=== PATIENT | male | born 1995 | race Two or more races ===

== ENCOUNTER 2024-07-10 02:01 | Emergency (ER) | payer MEDICAID, SELFPAY ==
[2024-07-10 02:02] VITALS: BMI 26.6
[2024-07-10 02:07] VITALS: BP 148/94; PULSE 91; RESP 18; TEMP 36.8; O2SAT 98
--- NOTE | 2024-07-10 02:23 | EKG_ITS ---
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
--- NOTE | 2024-07-10 02:46 | EDNOTE_ITS ---
ED Chest Pain RME/HPI General Chief Complaint: General Adult/Misc Complain Stated Complaint: CHEST AREA PAIN, PALPITATIONS,LIGHTHEADED Time Seen by Provider: 07/10/24 02:37 Arrival date/time: 07/10/24 02:01 28M with no known PMH presents to ED with sharp chest pain, heart palps, and some dizziness today w/o known trigger. Patient denies history of anxiety/panic attacks (though several visits here with that diagnosis), as well as drug/alcohol use (all tox screens have been neg here). Patient denies cough and URI symptoms. Patient does not want to try a Benzo. Patient states his symptoms are mostly gone except for the dizziness. Limitations: no limitations Related Data Previous Rx's ?Medication ?Instructions ?Recorded acetaminophen 500 mg capsule 1,000 mg (2 x 500 mg) PO QID PRN 05/25/21 fever or pain #30 caps azithromycin 250 mg tablet See Rx Instructions PO .COM PLEX #6 05/25/21 tabs acetaminophen 500 mg tablet 1,000 mg (2 x 500 mg) PO Q ID PRN 04/02/22 (Tylenol Extra Strength) fever or pain #30 tabs potassium, sodium phosphates 280 1 packet PO QID #4 ea 04/02/22 mg-160 mg-250 mg oral powder packet ibuprofen 800 mg tablet 800 mg PO TID PRN pain #30 t abs 08/14/23 tamsulosin 0.4 mg capsule (Flomax) 0.4 mg PO QDAY #10 caps 08/14/23 Allergies Allergy/AdvReac Type Severity Reaction Status Date / Time No Known Allergies Allergy Verified 07/10/24 02:04 Review of Systems Review of Systems Systems Reviewed: All systems reviewed, normal except as documented Constitutional Constitutional: Reports system reviewed and no additional complaints, except as documented, Denies fever(s) and Denies headache(s) ENT Ears, Nose, Mouth, and Throat: Reports as per HPI, Denies disequilibrium, Denies headache(s) and Reports vertigo Cardiovascular Cardiovascular: Reports system reviewed and no additional complaints, except as documented, Reports as per HPI, Reports chest pain, Denies dyspnea and Reports palpitations Respiratory Respiratory: Reports system reviewed and no additional complaints, except as documented, Denies cough and Denies dyspnea Gastrointestinal Gastrointestinal: Reports system reviewed and no additional complaints, except as documented, Denies abdominal pain, Denies nausea and Denies vomiting Neurologic Neurologic: Reports system reviewed and no additional complaints, except as documented, Denies confusion, Denies disequilibrium, Denies headache(s) and Reports vertigo Psychiatric Psychiatric: Denies confusion Endocrine Endocrine: Reports palpitations Past Medical History Past Medical History CARDIAC: Positive Hypertension; Negative Cardiac Disorders, Angina or Congestive Heart Failure RESPIRATORY: Negative Chronic Obstructive Pulmonary Disease (COPD) or Asthma GENITOURINARY: Negative Renal Disease ENDOCRINE: Negative Diabetes Mellitus Type 1 or Diabetes Mellitus Type 2 HEMATOLOGIC: Negative Sickle Cell Disease PSYCHO/SOCIAL: Positive Anxiety OTHER HISTORY: Positive Chicken Pox Family History FAMILY HISTORY: Negative Family Neurologic Problems, Family Psychiatric Problems, Family Respiratory Disorders, Family Cardiac Disorders, Family Gastrointestinal Problems, Family Cancer, Family Surgery or Family Anesthesia Reaction Social History SMOKING STATUS: Never smoker SECOND HAND EXPOSURE: No SUBSTANCE USE: does not use ED Exam General Limitations: Present no limitations General appearance: Present alert and in no apparent distress Head Head exam: Present atraumatic Eye Eye exam: Present normal appearance, PERRL and EOMI ENT ENT exam: Present normal exam, normal oropharynx and mucous membranes moist Neck Neck exam: Present normal inspection, full ROM and trachea midline Chest Chest inspection: Present normal inspection and symmetric chest wall rise Respiratory Respiratory exam: Present normal lung sounds bilaterally Cardiovascular Cardiovascular exam: Present regular rate, normal rhythm and normal heart sounds Abdominal Exam Abdominal exam: Present soft and normal bowel sounds Extremities Exam Extremities exam: Present normal inspection and full ROM Back Exam Back exam: Present normal inspection and full ROM Neurological Exam Neurological exam: Present alert, oriented X3 and CN II-XII intact Psychiatric Psychiatric exam: Present normal affect and normal mood Skin Skin exam: Present warm, dry, intact and normal color Course Quality Measures none Orders Category Date Time Status EKG (ED ONLY) *Do not use* NOW Care 07/10/24 02:23 Completed EKG (ED Only) Stat Exams 07/10/24 02:23 Draft CBC Stat Lab 07/10/24 03:06 Completed CMP [Comprehensive Metabolic Panel] Stat Lab 07/10/24 03:06 Completed D-Dimer Stat Lab 07/10/24 03:06 Completed Magnesium Stat Lab 07/10/24 03:06 Completed Phosphorous Stat Lab 07/10/24 03:06 Completed Troponin I Stat Lab 07/10/24 03:06 Completed Vital Signs Vital signs: Vital Signs Temperature 98.2 F 07/10/24 02:07 Pulse Rate 91 07/10/24 02:07 Respiratory Rate 18 07/10/24 02:07 Blood Pressure 148/94 H 07/10/24 02:07 Pulse Oximetry (%) 98 07/10/24 02:07 O2 at 98% on RA and WNLs Chest Pain MDM Narrative MDM Narrative:: 28M with no known PMH presents to ED with sharp chest pain, heart palps, and some dizziness today w/o known trigger. Patient denies history of anxiety/panic attacks (though several visits here with that diagnosis), as well as drug/alcohol use (all tox screens have been neg here). Patient denies cough and URI symptoms. Patient does not want to try a Benzo. Patient states his symptoms are mostly gone except for the dizziness. Physical exam reveals clear ENT and lungs. RRR. Patient is afebrile, calm, and alert. EKG is NSR. Chart review shows unknown reason of significant hypophosphatemia during last visit. Also, patient had elevated coags during COVID illness in 2021. No leukocytosis. Trop normal. D-dimer normal. Phosphorus and magnesium normal. CMP remarkable. Resolution of symptoms while waiting for test results. Patient data External records reviewed:: [facility] previous records Clinical information provided by:: patient Social determinants that could affect healthcare access:: none Patient has the following chronic illnesses:: none How is presenting disease/condition affected by chronic disease/condition?: no chronic disease Evaluation data The following diagnostics were reviewed and interpreted by me:: lab results and EKG tracing(s) Lab and/or radiology exams considered but not ordered:: ordered Interpretation Summary: above Medications / Prescriptions Medications or Prescriptions considered but not ordered:: not ordered Medication administrations:: n/a Consultations Consultation(s) initiated? (list below): No Diagnosis Chest Pain Differential Diagnosis: fracture of rib, pneumothorax, stable angina, unstable angina pectoris, atypical chest pain, st elevation myocardial infa rction, costochondritis, chest pain, biliary colic and other (PE, ACS, panic attack) Most likely diagnosis given after review of the tests above:: atypical chest pain, panic attack Admission Indicated Admission indicated?: not indicated Admission Request Was there a request for admission?: No Disposition Plan Disposition Plan: Discharge Discharge Attestation Discharge Attestation: The patient and all family members were given an opportunity to ask questions and understood the discharge instructions. Discharge instructions specifically effects, indications for sooner follow up or return to the emergency department, and the expected course of current diagnosis. Patient condition: Stable Discharge Plan Plan Patient Disposition: HOME (Self Care) Disposition Comment: Stable Prescriptions/Referrals Prescriptions/Med Rec: No Action azithromycin 250 mg tablet See Rx Instructions .ROUTE .COMPLEX Qty: 6 0RF Rx Instructions: For 250 mg dose pack: take 500 mg today (day 1), then 250 mg for 4 days (days 2-5) acetaminophen 500 mg capsule 1,000 mg PO QID PRN (Reason: fever or pain) Qty: 30 0RF potassium, sodium phosphates 280-160-250 mg powder in packet 1 packet PO QID Qty: 4 0RF acetaminophen [Tylenol Extra Strength] 500 mg tablet 1,000 mg PO QID PRN (Reason: fever or pain) Qty: 30 0RF tamsulosin [Flomax] 0.4 mg capsule 0.4 mg PO QDAY Qty: 10 0RF ibuprofen 800 mg tablet 800 mg PO TID PRN (Reason: pain) Qty: 30 0RF Referrals: Jarad Portillo MD [Primary Care Provider] - In 1 week Problem List Clinical Impression: Panic attack, Atypical chest pain Patient/Caregiver Discharge Instructions Education Materials: Your Body's Response to Anxiety, Panic Disorder Tx Additional Instructions: Please follow-up with PCP within 24-48 hours and return immediately if symptoms worsen. Print Language: Egyptian Stand Alone Forms: Patient Portal Info Letter ZOFIA/AUTUMN Supervising Physician ZOFIA/AUTUMN Supervising Physician: Dr. Moore
[2024-07-10 03:17] LABS: Basophils % (Auto) 1 % (0-2.5); Eosinophils # (Auto) 0.2 Thou/mm3 (0.0-0.5); Eosinophils % (Auto) 3 % (0-10); Hematocrit 42.5 % (41.0-53.0); Hemoglobin 14.7 g/dL (13.5-16.0); Immature Granulocytes % (Auto) 0 % (0-0); Immature Granulocytes Auto 0.02 Thou/mm3 (0.00-0.00); Lymphocytes # (Auto) 2.6 Thou/mm3 (1.0-4.8); Lymphocytes % (Auto) 29 % (10-50); Mean Corpuscular HGB Conc 34.6 g/dl (31.0-37.0); Mean Corpuscular Hemoglobin 28.2 pg (25.0-35.0); Mean Corpuscular Volume 82 fL (80-100); Monocytes # (Auto) 0.7 Thou/mm3 (0.0-0.8); Monocytes % (Auto) 8 % (0-12); Neutrophils # (Auto) 5.3 Thou/mm3 (1.8-7.7); Neutrophils % (Auto) 59 % (37-80); Nucleated Red Blood Cell % 0 /100 WBC (0); Platelet Count 225 Thou/mm3 (140-440); RDW Standard Deviation 37.3 fL (35.1-43.9); Red Blood Count 5.21 Miln/mm3 (4.50-5.90); White Blood Count 8.9 Thou/mm3 (3.8-10.6)
[2024-07-10 03:34] LABS: D-Dimer < 250 ng/mL (<600)
[2024-07-10 03:56] LABS: Alanine Aminotransferase 26 U/L (10-49); Albumin, Serum 4.8 gm/dL (3.5-5.0); Albumin/Globulin Ratio 1.6 (1.2-2.2); Alkaline Phosphatase 85 U/L (46-116); Anion Gap 8 (7-16); Aspartate Amino Transferase 20 U/L (0-34); BUN/Creatinine Ratio 14 Ratio (12-20); Bilirubin,Total 0.6 mg/dL (0.3-1.2); Blood Urea Nitrogen 11 mg/dL (9-23); Calcium 10.2 mg/dL (8.3-10.6); Calcium (Corrected) 10.2 mg/dL (8.5-10.1); Carbon Dioxide 28.4 mMol/L (20.0-31.0); Chloride 103 mMol/L (98-107); Creatinine (Component) 0.8 mg/dL (0.6-1.3); Estimated Creatinine Clearance 130.6 mL/min (>60); Glucose 95 mg/dL (74-106); Magnesium 2.2 mg/dL (1.6-2.6); Osmolality,Calculated 276 (275-295); Phosphorous 3.8 mg/dL (2.4-5.1); Potassium 3.8 mMol/L (3.4-5.1); Sodium 139 mMol/L (136-145); Total Protein 7.8 gm/dL (5.7-8.2); Troponin I < 0.020 ng/mL (0.0-0.045); eGFR > 60 See Note
[2024-07-10 04:11] VITALS: RESP 16
== END 2024-07-10 04:12 | disposition home or self-care (01) ==
PROVIDERS: Physician Assistant; Emergency Provider Emergency Medicine; PCP Family Medicine
DX: F41.0 Panic disorder [episodic paroxysmal anxiety] (principal); R07.89 Other chest pain; R42 Dizziness and giddiness; I10 Essential (primary) hypertension
CPT/HCPCS: 36415; 80053; 83735; 84100; 84484; 85025; 85379; 93005; 99283